=== PATIENT | male | born 1975 | race Hispanic/Latino ===

== ENCOUNTER 2016-09-16 16:18 | Emergency (ER) | payer SELFPAY ==
[2016-09-16] MEDS ORDERED: MORPHINE 4 MG/ML SYR ONE (16:56)
[2016-09-16] MEDS ORDERED: ONDANSETRON 4 MG VIAL ONE (16:56)
[2016-09-16] MEDS ORDERED: SODIUM CHLORIDE 0.9% 1,000 ML ONE (16:57)
[2016-09-16] MEDS ORDERED: TDaP 0.5 ML VIAL IM.VACC ONE (17:53)
== END 2016-09-16 18:34 | disposition home or self-care (01) ==
LOC: ER 16:18
DX: S00.81XA Abrasion of other part of head, initial encounter (principal); S50.311A Abrasion of right elbow, initial encounter; S80.211A Abrasion, right knee, initial encounter; S00.83XA Contusion of other part of head, initial encounter; S40.011A Contusion of right shoulder, initial encounter; S50.01XA Contusion of right elbow, initial encounter; S80.01XA Contusion of right knee, initial encounter; W17.89XA Other fall from one level to another, initial encounter
CPT/HCPCS: 70450; 71020; 72100; 72125; 72170; 90471; 96361; 96374; 96375